=== PATIENT | female | born 1990 | race Caucasian/White ===

== ENCOUNTER 2021-10-01 19:14 | Inpatient (IN) | payer MEDICAID, OTHER ==
[~2021-10-01] VITALS: Ht 167.6 cm; Wt 99.8 kg
[2021-10-01] MEDS ORDERED: LACTATED RINGERS 1,000 ML IV SCH ×2 (20:15→20:30)
[2021-10-01] MEDS ORDERED: CARBOPROST TROMETHAMINE 250 MCG/ML AMPUL IM PRN (20:30)
[2021-10-01] MEDS ORDERED: DEXT 5%/LR + PITOCIN 20UNITS/L 1,000 ML IV SCH (20:30)
[2021-10-01] MEDS ORDERED: BLOOD SUGAR DIAGNOSTIC STRIP TEST NR (20:30)
[2021-10-01] MEDS ORDERED: NALOXONE HCL 0.4 MG/ML 1ML VIAL IM PRN (20:30)
[2021-10-01] MEDS ORDERED: CITRIC ACID/SODIUM CITRATE SOLN 30ML UDC PO PRN (20:30)
[2021-10-01] MEDS ORDERED: METHYLERGONOVINE MALEATE 0.2 MG/ML IM PRN (20:30)
[2021-10-01] MEDS ORDERED: ACETAMINOPHEN 325MG TABLET PO PRN (20:30)
[2021-10-01] MEDS ORDERED: ACETAMINOPHEN 500MG TABLET PO PRN (20:30)
[2021-10-01] MEDS ORDERED: LIDOCAINE HCL 1% 20ML VIAL (Pyxis) INJ INFIL SCH (20:30)
[2021-10-01] MEDS ORDERED: ONDANSETRON HCL 4MG/2ML INJ IV PRN (20:30)
[2021-10-01 21:12] LABS: BASOPHILS % 0.2 % (0.0-2.0); EOSINOPHILS % 0.4 % (0.0-5.0); HEMATOCRIT. 24.8 % (36.0-48.0); HEMOGLOBIN. 7.7 g/dL (12.0-16.0); LYMPHOCYTES % 10.2 % (20.0-50.0); MEAN CORPUSCULAR HEMOGLOBIN 19.7 pg (28.0-32.0); MEAN CORPUSCULAR VOLUME 63.7 fL (81.0-99.0); MEAN PLATELET VOLUME 8.7 fl (7.4-10.4); MONOCYTES % 5.6 % (2.0-8.0); NEUTROPHILS % 83.6 % (40.0-76.0); PLATELET 224 x1000/uL (130-400); RED BLOOD CELL COUNT 3.89 mill/uL (4.2-5.4); RED CELL DISTRIBUTION WIDTH 17.2 % (11.6-14.6)
[2021-10-01 21:14] LABS: CLARITY URINE CLOUDY (CLEAR); COLOR URINE YELLOW (YELLOW); KETONES URINE NEGATIVE (NEGATIVE); LEUKOCYTE ESTERASE URINE 3+ (NEGATIVE); NITRITE URINE NEGATIVE (NEGATIVE); OCCULT BLOOD URINE 3+ (NEGATIVE); PROTEIN URINE 1+ (NEGATIVE); SPECIFIC GRAVITY URINE 1.008 (1.005-1.030)
[2021-10-01 21:20] LABS: INR 0.9; PARTIAL THROMBOPLASTIN TIME 27.2 sec (23.4-31.0); PROTHROMBIN TIME 9.8 sec (9.6-11.0)
[2021-10-01] MEDS: BUTORPHANOL TARTRATE 2 MG/ML VIAL IV PRN ×2 (21:24→23:04)
[2021-10-01] MEDS ORDERED: PENICILLIN G POTASSIUM 5 MMU in DEXT 5% WATER 100 ML IV NR (21:30)
[2021-10-01 21:37] LABS: *BARBITURATES SCREEN URINE NEGATIVE (NEGATIVE); *BENZODIAZEPINES SCREEN URINE NEGATIVE (NEGATIVE)
[2021-10-01 21:38] LABS: *COCAINE SCREEN URINE NEGATIVE (NEGATIVE); CANNABINOID URINE SCREEN NEGATIVE (NEGATIVE); METHADONE URINE SCREEN NEGATIVE (NEGATIVE); OPIATES URINE SCREEN NEGATIVE (NEGATIVE); PHENCYCLIDINE URINE SCREEN NEGATIVE (NEGATIVE)
[2021-10-01 21:46] LABS: *AMPHETAMINES SCREEN URINE PRESUMTIVE POSITIVE (NEGATIVE)
[2021-10-01 21:49] LABS: HEPATITIS B SURFACE ANTIGEN NEGATIVE
[2021-10-01 23:24] LABS: PLATELET ESTIMATE NORMAL
[2021-10-01] MEDS ORDERED: LIDOCAINE HCL 1% 30ML VIAL (10MG/ML) INFIL SCH (23:45)
[2021-10-02] MEDS ORDERED: DIPHENHYDRAMINE 25MG CAPSULE PO PRN (00:45)
[2021-10-02] MEDS ORDERED: IBUPROFEN 800MG TABLET PO PRN (00:45)
[2021-10-02] MEDS ORDERED: BENZOCAINE/LANOLIN/ALOE VERA SPRAY TOP PRN (00:45)
[2021-10-02] MEDS ORDERED: RHO(D) IMMUNE GLOBULIN 300 MCG/SYR IM PRN (00:45)
[2021-10-02] MEDS ORDERED: HEMORRHOIDAL SUPP PR PRN (00:45)
[2021-10-02] MEDS ORDERED: GLYCERIN/WITCH HAZEL LEAF MEDICATED PAD TOP PRN (00:45)
[2021-10-02] MEDS ORDERED: LANOLIN OINT 7GM TUBE TOP PRN (00:45)
[2021-10-02] MEDS ORDERED: ACETAMINOPHEN WITH CODEINE 300/30MG TABLET PO PRN (00:45)
[2021-10-02] MEDS ORDERED: DEXT 5%/LR + PITOCIN 20UNITS/L 1,000 ML IV SCH (00:45)
[2021-10-02] MEDS ORDERED: BISACODYL 10MG SUPP PR PRN (00:45)
[2021-10-02] MEDS ORDERED: IBUPROFEN 400MG TABLET PO PRN (00:45)
[2021-10-02] MEDS ORDERED: PENICILLIN G POTASSIUM 2.5 MMU in DEXTROSE 5% WATER 50 ML IV SCH (01:30)
[2021-10-02 02:30] VITALS: BP 122/64
[2021-10-02 03:00] VITALS: BP 120/63
[2021-10-02 03:30] VITALS: BP 122/70
[2021-10-02 08:30] VITALS: BP 133/70
[2021-10-02] MEDS: SIMETHICONE 80MG TABLET CHEW PO SCH ×4 (08:52→21:23)
[2021-10-02] MEDS: PRENATAL VIT/FE FUMARATE/FA TABLET PO SCH (08:53)
[2021-10-02] MEDS ORDERED: PENICILLIN G BENZATHINE 2,400,000 UNITS/4ML SYR IM NR (14:00)
[2021-10-02 15:42] VITALS: BP 124/72
[2021-10-02 19:30] VITALS: BP 115/72
[2021-10-02] MEDS ORDERED: DOCUSATE SODIUM 100MG CAPSULE PO SCH (21:00)
[2021-10-03 04:00] VITALS: BP 116/68
[2021-10-03 06:29] LABS: BASOPHILS % 0.3 % (0.0-2.0); EOSINOPHILS % 1.9 % (0.0-5.0); HEMATOCRIT. 22.2 % (36.0-48.0); LYMPHOCYTES % 16.6 % (20.0-50.0); MEAN CORPUSCULAR HEMOGLOBIN 19.7 pg (28.0-32.0); MEAN CORPUSCULAR VOLUME 62.9 fL (81.0-99.0); MEAN PLATELET VOLUME 8.9 fl (7.4-10.4); MONOCYTES % 5.1 % (2.0-8.0); NEUTROPHILS % 76.1 % (40.0-76.0); PLATELET 222 x1000/uL (130-400); RED BLOOD CELL COUNT 3.53 mill/uL (4.2-5.4); RED CELL DISTRIBUTION WIDTH 16.9 % (11.6-14.6)
[2021-10-03] MEDS ORDERED: FERROUS SULFATE 325MG TABLET PO SCH (07:30)
[2021-10-03 08:00] VITALS: BP 125/80
[2021-10-03] MEDS: SIMETHICONE 80MG TABLET CHEW PO SCH (08:36)
[2021-10-03] MEDS: PRENATAL VIT/FE FUMARATE/FA TABLET PO SCH (08:37)
== END 2021-10-03 15:40 | disposition home or self-care (01) | DRG 560 ==
LOC: OBSVTOIN 19:14 → 8 EST LDRP 19:14 → 8EST 10-02 02:36
PROVIDERS: ADMIT Specialist; ATTEND Specialist
PROC: 10E0XZZ Delivery of Products of Conception, External Approach (ICD-10-PCS; principal; 2021-10-02)
PROC: 0W8NXZZ Division of Female Perineum, External Approach (ICD-10-PCS; 2021-10-02)
DX: O34.211 Maternal care for low transverse scar from previous cesarean delivery (principal); Z37.0 Single live birth; O99.324 Drug use complicating childbirth; F15.10 Other stimulant abuse, uncomplicated; Z20.822 Contact with and (suspected) exposure to COVID-19; O69.81X0 Labor and delivery complicated by cord around neck, without compression, not applicable or unspecified; O99.02 Anemia complicating childbirth; Z3A.39 39 weeks gestation of pregnancy
CPT/HCPCS: 36415; 76805; 80305; 81003; 85025; 86592; 86593; 86703; 86762; 86780; 86850; 86900; 87340; 87426; 88307; 99281; J0561; J0595; J2310; J2540; J2590; J3490; J7060; J7120